=== PATIENT | male | born 1995 | race Asian ===

== ENCOUNTER 2019-07-27 22:31 | Emergency (ER) | payer OTHER ==
[~2019-07-27] VITALS: Ht 154.9 cm; Wt 72.6 kg
[2019-07-27 22:35] VITALS: BP_SYST 119
[2019-07-27] MEDS ORDERED: LORazepam 2 MG/ML VIAL IVP ONE (23:30)
[2019-07-27] MEDS ORDERED: MORPHINE 2 MG/ML INJ. SYRINGE IVP ONE (23:30)
[2019-07-28] MEDS ORDERED: LORazepam 2 MG/ML VIAL ONE (00:15)
[2019-07-28 00:26] VITALS: BP_SYST 167
[2019-07-28] MEDS ORDERED: LORazepam 2 MG/ML VIAL IVP ONE (01:15)
[2019-07-28] MEDS ORDERED: MORPHINE 2 MG/ML INJ. SYRINGE IVP ONE (01:15)
== END 2019-07-28 00:26 | disposition home or self-care (01) ==
LOC: SED 22:31
DX: S43.004A Unspecified dislocation of right shoulder joint, initial encounter (principal); Z88.6 Allergy status to analgesic agent; W18.39XA Other fall on same level, initial encounter; Y93.89 Activity, other specified; Y92.89 Other specified places as the place of occurrence of the external cause; Y99.8 Other external cause status
CPT/HCPCS: 23650; 73030 ×2; 99152; 99153; 99285; J2060 ×2; J2270; J7030